=== PATIENT | male | born 1965 | race Caucasian/White ===

== ENCOUNTER 2020-06-17 09:19 | Inpatient (IN) | payer BC ==
[~2020-06-17] VITALS: Ht 182.9 cm; Wt 117.7 kg
[2020-06-17] VITALS (16 sets, daily range): BP systolic 98–136; BP diastolic 45–74
--- NOTE | 2020-06-17 06:40 | NUR ---
Patient in room MED 314. I have received report from Jennifer CLARKE and had the opportunity to ask questions and assume patient care. Addendum: 06/17/20 at 0845 by Natalie Humphreys RN Received report at [id number] not at 0640
[~2020-06-17 09:19] MED LIST: papaverine 30 mg/ml 2ml inj. ONE
[2020-06-17] MEDS ORDERED: LORazepam 0.5 MG tablet PO PRN (09:45)
[2020-06-17] MEDS ORDERED: diphenhydrAMINE 25mg capsule PO PRN (09:45)
[2020-06-17] MEDS ORDERED: normal saline 1,000 ML IV SCH (09:45)
[2020-06-17] MEDS ORDERED: DEXM5CPM PO (10:07)
[2020-06-17] MEDS ORDERED: ARIP5TAB14 PO (10:07)
[2020-06-17] MEDS ORDERED: LAMO25TA94 PO (10:07)
[2020-06-17] MEDS ORDERED: NALT50TA PO (10:07)
[2020-06-17] MEDS ORDERED: METO50TA16 PO (10:07)
[2020-06-17] MEDS ORDERED: GABA300C PO (10:07)
[2020-06-17] MEDS ORDERED: ZOLP5TAB2 PO (10:07)
[2020-06-17] MEDS ORDERED: PARO40TA PO (10:07)
[2020-06-17] MEDS ORDERED: ASPI-1265 PO (10:07)
[2020-06-17] MEDS ORDERED: LIDOcaine 1% (10mg/ml)w/preservative injection 20ml MDV ONE (10:35)
[2020-06-17] MEDS ORDERED: iohexol 350 MG/ML 50ML vial IV ONE (10:36)
[2020-06-17] MEDS ORDERED: iohexol 350MG/ML 100ml bottle IV ONE (10:36)
[2020-06-17] MEDS ORDERED: midazolam 2 mg/2 ml injection ONE ×3 (10:36→12:28)
[2020-06-17] MEDS: acetylcysteine 200 MG/ml 4ml vial PO SCH ×2 (10:36→21:04)
[2020-06-17] MEDS ORDERED: fentaNYL/PF 50MCG/1 ML 2ML syringe ONE (10:37)
[2020-06-17 10:40] LABS: BASOPHILS % (AUTO) 0.4 % (0-1); EOSINOPHILS # (AUTO) 0.2 X10'3 (0-0.9); EOSINOPHILS % (AUTO) 2.8 % (0-6); HEMATOCRIT 47.6 % (42.0-52.0); HEMOGLOBIN 16.6 g/dl (14.0-17.9); LYMPHOCYTES # (AUTO) 1.2 X10'3 (1.1-4.8); MEAN CORPUSCULAR HEMOGLOBIN 30.1 PG (27.0-31.0); MEAN CORPUSCULAR HGB CONC 34.8 g/dL (33.0-36.5); MEAN CORPUSCULAR VOLUME 86.4 FL (78-98); MEAN PLATELET VOLUME 8.1 FL (7.4-10.4); MONOCYTES # (AUTO) 0.5 X10'3 (0-0.9); NEUTROPHILS # (AUTO) 4.2 X10'3 (1.8-7.7); NEUTROPHILS % (AUTO) 69.8 % (42-75); PLATELET COUNT 211 X10'3 (140-440); RED BLOOD COUNT 5.51 X10'6 (4.70-6.10); RED CELL DISTRIBUTION WIDTH 14.2 % (11.5-14.5); WHITE BLOOD COUNT 6.1 X10'3 (4.5-11.0)
[2020-06-17 10:53] LABS: ALBUMIN 4.3 G/DL (3.4-5.0); ANION GAP 7 (8-16); BLOOD UREA NITROGEN 11 MG/DL (7-18); BUN/CREATININE RATIO 11.6 (5.4-32.0); CALCIUM 8.8 MG/DL (8.5-10.1); CHLORIDE 105 MMOL/L (99-107); CREATININE 0.95 MG/DL (0.60-1.10); GLUCOSE 90 MG/DL (70-104); POTASSIUM 4.4 MMOL/L (3.5-5.1); SODIUM 141 MMOL/L (135-145); TOTAL CARBON DIOXIDE 28.9 MMOL/L (24-32); eGFR 82 ML/MIN
[2020-06-17 10:57] LABS: PARTIAL THROMBOPLASTIN TIME 28 SECONDS (22-32)
[2020-06-17] MEDS ORDERED: iohexol 350 MG/1 ML 200ml bottle ONE (11:46)
[2020-06-17] MEDS ORDERED: heparin 1,000unit/ml 10ml vial 10 ML ONE (11:47)
[2020-06-17] MEDS ORDERED: nitroGLYCERIN-Tridil 50MG/D5W 250 ML IV ONE (11:59)
[2020-06-17] MEDS ORDERED: heparin 25,000 UNIT/250ml bag 250 ML IV ONE (12:52)
[2020-06-17] MEDS ORDERED: nitroGLYCERIN 1gm ointment UD TP ONE (13:25)
[2020-06-17] MEDS ORDERED: potassium Cl 20mEq/100mL bag 100 ML IV PRN (13:45)
[2020-06-17] MEDS ORDERED: magnesium 4gm in 100ml NS 100 ML IV PRN (13:45)
[2020-06-17] MEDS ORDERED: potassium Cl 20 mEq SR tablet PO PRN (13:45)
[2020-06-17] MEDS ORDERED: magnesium 2GM in 50ml NS 50 ML IV PRN (13:45)
[2020-06-17] MEDS ORDERED: MESSAGE TO NURSING PO ONE ×2 (13:45)
[2020-06-17] MEDS ORDERED: proCHLORperazine 10 MG/2 ml inj IV PRN (14:00)
[2020-06-17] MEDS ORDERED: OXAZEpam 15mg capsule PO PRN (14:00)
[2020-06-17] MEDS ORDERED: nitroGLYCERIN 0.4mg SUBLingual tab SL PRN (14:00)
[2020-06-17] MEDS ORDERED: ondansetron/PF 4mg/2ml inj IV PRN (14:00)
[2020-06-17] MEDS ORDERED: HYDROcodone/acetaminophen 5mg/325mg tablet PO PRN (14:00)
[2020-06-17] MEDS ORDERED: HYDROcodone/acetaminophen 10/325mg tab PO PRN (14:00)
--- NOTE | 2020-06-17 17:00 | NUR ---
Report had been received from Wilian CLARKE in short Stay. He brought pt to room 314. Pt A&O x 4 R Cath site soft, with CDI dressing with 1 tiny spot of blood which was circled, Pedal pulses present bilat. Assessment done and this nurse agrees with the first assessment done in Short stay. Pt denies pain. VSS. Having pt cont to lie flat for another hour. Pt no distress denies needs, Call light in reach.
[2020-06-17 17:51] LABS: HEMOGLOBIN A1C 5.4 % (4.5-6.2)
[2020-06-17 17:56] LABS: ALANINE AMINOTRANSFERASE 21 U/L (12-78); ALBUMIN 3.4 G/DL (3.4-5.0); ALBUMIN/GLOBULIN RATIO 1.3 (1.1-1.5); ALKALINE PHOSPHATASE 50 IU/L (46-116); ANION GAP 8 (8-16); ASPARTATE AMINO TRANSFERASE 15 U/L (10-37); BILIRUBIN,TOTAL 0.5 MG/DL (0.1-1.0); BLOOD UREA NITROGEN 12 MG/DL (7-18); BUN/CREATININE RATIO 13.5 (5.4-32.0); CALCIUM 8.5 MG/DL (8.5-10.1); CHLORIDE 106 MMOL/L (99-107); CREATININE 0.89 MG/DL (0.60-1.10); GLUCOSE 152 MG/DL (70-104); POTASSIUM 3.8 MMOL/L (3.5-5.1); SODIUM 143 MMOL/L (135-145); TOTAL CARBON DIOXIDE 29.1 MMOL/L (24-32); TOTAL PROTEIN 6.1 G/DL (6.4-8.2); eGFR 88 ML/MIN
[2020-06-17] MEDS: metoprolol tartrate 50mg tablet PO SCH (20:00)
[2020-06-17] MEDS: atorvastatin 10mg tablet PO SCH (21:04)
[2020-06-17] MEDS: normal saline 1000ml 1,000 ML IV SCH ×2 (21:09→23:00)
[2020-06-17] MEDS ORDERED: naltrexone 50mg tablet PO SCH (22:10)
[2020-06-17 22:35] LABS: BASOPHILS # (AUTO) 0.1 X10'3 (0-0.2); BASOPHILS % (AUTO) 1.1 % (0-1); EOSINOPHILS # (AUTO) 0.1 X10'3 (0-0.9); EOSINOPHILS % (AUTO) 2.1 % (0-6); HEMATOCRIT 41.9 % (42.0-52.0); HEMOGLOBIN 14.4 g/dl (14.0-17.9); LYMPHOCYTES # (AUTO) 1.7 X10'3 (1.1-4.8); LYMPHOCYTES % (AUTO) 25.4 % (21-51); MEAN CORPUSCULAR HEMOGLOBIN 29.9 PG (27.0-31.0); MEAN CORPUSCULAR HGB CONC 34.4 g/dL (33.0-36.5); MEAN CORPUSCULAR VOLUME 86.8 FL (78-98); MEAN PLATELET VOLUME 8.5 FL (7.4-10.4); MONOCYTES # (AUTO) 0.4 X10'3 (0-0.9); MONOCYTES % (AUTO) 6.4 % (2-12); NEUTROPHILS # (AUTO) 4.4 X10'3 (1.8-7.7); PLATELET COUNT 190 X10'3 (140-440); RED BLOOD COUNT 4.83 X10'6 (4.70-6.10); RED CELL DISTRIBUTION WIDTH 14.3 % (11.5-14.5); WHITE BLOOD COUNT 6.8 X10'3 (4.5-11.0)
[2020-06-17 22:46] LABS: ABG BASE EXCESS -0.2 mmol/L (-2.0-2.0); ABG HCO3 23.8 mmol/L (22.0-26.0); ABG OXYGEN SATURATION 95.4 % (94-97); ABG PCO2 (T) 36.9 mmHg (35.0-48.0); ABG PO2 (T) 77.2 mmHg (75.0-100.0); ALLEN'S TEST POSITIVE; FCOHb 0.4 % (0.0-3.9); PATIENT TEMPERATURE 36.9; TOTAL HEMOGLOBIN 14.4 G/dl (14.0-18.0)
[2020-06-17] MEDS: gabapentin 300mg capsule PO SCH (23:09)
[2020-06-18 02:00] VITALS: BP 103/56
[2020-06-18] MEDS: normal saline 1000ml 1,000 ML IV SCH ×2 (03:52→19:00)
[2020-06-18 06:00] VITALS: BP 109/68
--- NOTE | 2020-06-18 06:18 | NUR ---
Problems reprioritized. Patient report given, questions answered & plan of care reviewed with Jennifer CLARKE. Patient in stable condition
[2020-06-18] MEDS: acetylcysteine 200 MG/ml 4ml vial PO SCH ×2 (08:00→20:34)
[2020-06-18] MEDS: gabapentin 300mg capsule PO SCH (08:00)
[2020-06-18] MEDS ORDERED: DEXMETHYLPHENIDATE HCL PO SCH (08:00)
[2020-06-18] MEDS ORDERED: naltrexone 50mg tablet PO SCH (08:00)
[2020-06-18] MEDS ORDERED: aspirin 81mg tab.chew PO SCH (08:00)
--- NOTE | 2020-06-18 08:00 | NUR ---
The pt's had brought him things from home including his Dexmethlphenidate left it in . This am he was upset he had not gotten it but it was never given to NOC so they could take to pharmacy. Pt got up and had taken med himself. Nurse stated it needed to be kept in pharmacy so it would be safe and right dose.
[2020-06-18] MEDS ORDERED: insulin glargine (Lantus) pen - multi-dose SQ PRN (08:05)
[2020-06-18] MEDS ORDERED: dextrose 50%-water 50ml dispensing syringe IV PRN (08:05)
[2020-06-18] MEDS ORDERED: MESSAGE TO NURSING PO ONE ×2 (08:05→10:00)
[2020-06-18] MEDS: metoprolol tartrate 50mg tablet PO SCH ×2 (08:49→20:00)
[2020-06-18] MEDS: aripiprazole 5mg tablet PO SCH (08:50)
[2020-06-18] MEDS: PARoxetine 20mg tablet PO SCH (10:31)
[2020-06-18 11:00] VITALS: BP 109/68
[2020-06-18] MEDS ORDERED: ringers solution, lacted 1,000 ML IV ONE (11:00)
[2020-06-18] MEDS ORDERED: NALT50TA PO (12:11)
[2020-06-18] MEDS ORDERED: gabapentin 300mg capsule PO SCH (12:17)
[2020-06-18 13:39] LABS: BASOPHILS % (AUTO) 0.3 % (0-1); EOSINOPHILS # (AUTO) 0.1 X10'3 (0-0.9); EOSINOPHILS % (AUTO) 2.6 % (0-6); HEMATOCRIT 40.7 % (42.0-52.0); HEMOGLOBIN 14.3 g/dl (14.0-17.9); LYMPHOCYTES # (AUTO) 1.1 X10'3 (1.1-4.8); LYMPHOCYTES % (AUTO) 19.6 % (21-51); MEAN CORPUSCULAR VOLUME 85.7 FL (78-98); MEAN PLATELET VOLUME 7.8 FL (7.4-10.4); MONOCYTES # (AUTO) 0.5 X10'3 (0-0.9); MONOCYTES % (AUTO) 8.5 % (2-12); NEUTROPHILS # (AUTO) 3.8 X10'3 (1.8-7.7); PLATELET COUNT 173 X10'3 (140-440); RED BLOOD COUNT 4.75 X10'6 (4.70-6.10); RED CELL DISTRIBUTION WIDTH 14.2 % (11.5-14.5); WHITE BLOOD COUNT 5.5 X10'3 (4.5-11.0)
[2020-06-18] MEDS ORDERED: gabapentin 300mg capsule PO ONE (14:15)
[2020-06-18] MEDS: naltrexone 50mg tablet PO SCH ×2 (14:48→20:34)
[2020-06-18 18:00] VITALS: BP 125/81
--- NOTE | 2020-06-18 18:30 | NUR ---
Patient in room MED 314. I have received report from Jennifer CLARKE and had the opportunity to ask questions and assume patient care.
--- NOTE | 2020-06-18 18:40 | NUR ---
asked Noc shift to do daily weight.
[2020-06-18] MEDS ORDERED: sod chloride 0.9% 10ml flush syringe IV SCH (20:00)
--- NOTE | 2020-06-18 20:26 | NUR ---
At 2019 spoke to Alexandr galvan patient home meds. ok for patient to take lamictal 50 mg at bedtime. no other orders at this time
[2020-06-18] MEDS: atorvastatin 10mg tablet PO SCH (20:34)
[2020-06-18] MEDS: lamoTRIgine 25mg tablet PO SCH (21:12)
[2020-06-18 22:00] VITALS: BP 115/64
[2020-06-19] VITALS (14 sets, daily range): BP systolic 89–125; BP diastolic 43–72
[2020-06-19] MEDS ORDERED: MESSAGE TO NURSING PO ONE ×2 (02:00→06:00)
--- NOTE | 2020-06-19 03:26 | NUR ---
patient is in stable condition. prep for cabg is starting now
[2020-06-19] MEDS ORDERED: MALTODEXTRIN/FRUCTOSE 0.68 KCAL/ML LIQUID 296ML BOTTLE PO ONE (05:00)
[2020-06-19] MEDS ORDERED: ceFAZolin 1000mg inj ONE (05:02)
[2020-06-19] MEDS ORDERED: Insulin Reg/NS 100units/100mL 100 ML IV SCH ×2 (05:30→10:35)
[2020-06-19] MEDS ORDERED: gabapentin 400mg capsule PO ONE (05:30)
[2020-06-19] MEDS ORDERED: mupirocin 2% ointment 22GM NS SCH (05:30)
[2020-06-19] MEDS ORDERED: ceFAZolin inj. 3,000 MG in normal saline 100ml IV soln 100 ML IV ONE (05:30)
[2020-06-19] MEDS ORDERED: LORazepam 2 mg/ml vial IV ONE (06:00)
[2020-06-19] MEDS ORDERED: famotidine 20mg tablet PO ONE (06:00)
--- NOTE | 2020-06-19 06:20 | NUR ---
Problems reprioritized. Patient report given, questions answered & plan of care reviewed with Jennifer CLARKE.
[2020-06-19] MEDS ORDERED: papaverine 30 mg/ml 2ml inj. IA ONE (06:30)
--- NOTE | 2020-06-19 06:30 | NUR ---
Patient in room MED 314. I have received report from Natalie CLARKE and had the opportunity to ask questions and assume patient care.
[2020-06-19] MEDS ORDERED: LORazepam 2 mg/ml vial ONE (06:35)
[2020-06-19 06:36] LABS: ALBUMIN 3.7 G/DL (3.4-5.0); ANION GAP 9 (8-16); BLOOD UREA NITROGEN 9 MG/DL (7-18); BUN/CREATININE RATIO 10.5 (5.4-32.0); CALCIUM 8.6 MG/DL (8.5-10.1); CHLORIDE 106 MMOL/L (99-107); CREATININE 0.86 MG/DL (0.60-1.10); GLUCOSE 105 MG/DL (70-104); POTASSIUM 3.9 MMOL/L (3.5-5.1); SODIUM 142 MMOL/L (135-145); eGFR > 90 ML/MIN
--- NOTE | 2020-06-19 06:50 | NUR ---
Pt taken to OR for CABG. All pre op meds completed. Pt has remained stable and stating to Dr Link "I am ready to do this " he had remained stable and is in good spirits this morning. Taken in bed by OR nurses.
[2020-06-19] MEDS ORDERED: rocuronium 10mg/ml inj IV ONE ×3 (06:55→08:12)
[2020-06-19] MEDS ORDERED: NITROPRUSSIDE IV ONE (06:55)
[2020-06-19] MEDS ORDERED: nitroGLYCERIN in D5W 50mg/250ml (Tridil) infusion IV ONE (06:55)
[2020-06-19] MEDS ORDERED: isoflurane 100ml inhalation liquid IH ONE (06:55)
[2020-06-19] MEDS ORDERED: protamine sulf. 10mg/ml inj. IV ONE (06:55)
[2020-06-19] MEDS ORDERED: SUFENTANIL CITRATE 50 MCG/ML 2ml ampule IV ONE (07:00)
[2020-06-19] MEDS ORDERED: LIDOcaine 2% (20mg/ml) 5ml vial ONE (07:02)
[2020-06-19] MEDS ORDERED: propofol inj 20 ML IV ONE (07:02)
[2020-06-19 07:46] LABS: ABG BASE EXCESS 1.9 mmol/L (-2.0-2.0); ABG HCO3 25.3 mmol/L (22.0-26.0); ABG OXYGEN SATURATION 97.7 % (94-97); ABG PCO2 35.5 mmHg (35.0-48.0); CL (ABG) 104 mmol/L (98-110); FCOHb 1.1 % (0.0-3.9); FMetHb 0.3 % (0.0-1.5); FO2Hb 96.3 % (94-97); GLUCOSE (ABG) 102 mg/dl (70-140); IONIZED CA (ABG) 1.12 mmol/L (1.10-1.43); K (ABG) 3.9 mmol/L (3.5-5.0); TOTAL HEMOGLOBIN 13.6 G/dl (14.0-18.0)
[2020-06-19] MEDS ORDERED: heparin 10,000 units/1 ML INJ ONE (08:00)
[2020-06-19] MEDS ORDERED: phenylephrine 10mg/ml inj. ONE ×2 (08:00→08:12)
[2020-06-19] MEDS ORDERED: calcium chloride 100 MG/1 ML inj IV ONE (08:00)
[2020-06-19] MEDS ORDERED: sodium bicarbonate (8.4%) 1 mEq/ml syringe ONE (08:00)
[2020-06-19] MEDS: aripiprazole 5mg tablet PO SCH (08:00)
[2020-06-19] MEDS: naltrexone 50mg tablet PO SCH ×2 (08:00→20:38)
[2020-06-19] MEDS ORDERED: aminocaproic acid 250 MG/1 ML inj. ONE (08:00)
[2020-06-19] MEDS ORDERED: LIDOcaine 2% (20 mg/ml) 5ml cardiac syringe ONE (08:00)
[2020-06-19] MEDS ORDERED: metoprolol tartrate 12.5mg (1/2 tablet) PO SCH (08:00)
[2020-06-19] MEDS ORDERED: methylPREDNISolone sod succ 1000mg vial ONE (08:00)
[2020-06-19] MEDS ORDERED: magnesium sulf 1 GM/2 ML ONE (08:00)
[2020-06-19] MEDS: acetylcysteine 200 MG/ml 4ml vial PO SCH ×2 (08:00→20:38)
[2020-06-19] MEDS: PARoxetine 20mg tablet PO SCH (08:00)
[2020-06-19] MEDS ORDERED: albumin (human) 25% 100 ML IV solution IV ONE (08:00)
[2020-06-19] MEDS ORDERED: potassium Cl 2 mEq/ml inj IV ONE (08:00)
[2020-06-19] MEDS: nitroPRUSSIDE (NIPRIDE) (200MCG/ML) 100ML Drip IV SCH ×2 (08:05→19:19)
[2020-06-19 08:37] LABS: ABG BASE EXCESS 0.5 mmol/L (-2.0-2.0); ABG HCO3 24.2 mmol/L (22.0-26.0); ABG OXYGEN SATURATION 96.9 % (94-97); ABG PCO2 36.2 mmHg (35.0-48.0); ABG PO2 85.2 mmHg (75.0-100.0); CL (ABG) 104 mmol/L (98-110); FO2Hb 95.9 % (94-97); GLUCOSE (ABG) 107 mg/dl (70-140); IONIZED CA (ABG) 1.09 mmol/L (1.10-1.43); K (ABG) 3.9 mmol/L (3.5-5.0); TOTAL HEMOGLOBIN 14.1 G/dl (14.0-18.0)
[2020-06-19 09:15] LABS: ABG BASE EXCESS VENOUS -1.2 mmol/L; ABG HCO3 VENOUS 24.8 mmol/L; ABG PCO2 VENOUS 47.1 mmHg; ABG PO2 VENOUS 49.7 mmHg; CL (ABG) 101 mmol/L (98-110); FCOHb VENOUS 1.1 %; FHHb VENOUS 15.4 %; FMetHb VENOUS 0.2 %; FO2Hb VENOUS 83.3 %; GLUCOSE (ABG) 122 mg/dl (70-140); IONIZED CA (ABG) 0.99 mmol/L (1.10-1.43); K (ABG) 4.4 mmol/L (3.5-5.0); TOTAL HEMOGLOBIN 11.2 G/dl (14.0-18.0)
[2020-06-19 09:19] LABS: ABG BASE EXCESS -3.7 mmol/L (-2.0-2.0); ABG HCO3 21.5 mmol/L (22.0-26.0); ABG OXYGEN SATURATION 99.2 % (94-97); ABG PCO2 39.8 mmHg (35.0-48.0); ABG PO2 357.5 mmHg (75.0-100.0); CL (ABG) 102 mmol/L (98-110); FCOHb 0.3 % (0.0-3.9); FMetHb 0.1 % (0.0-1.5); FO2Hb 98.8 % (94-97); GLUCOSE (ABG) 119 mg/dl (70-140); IONIZED CA (ABG) 1.04 mmol/L (1.10-1.43); K (ABG) 4.2 mmol/L (3.5-5.0); TOTAL HEMOGLOBIN 11.6 G/dl (14.0-18.0)
[2020-06-19 09:41] LABS: ABG BASE EXCESS 0.2 mmol/L (-2.0-2.0); ABG HCO3 26.2 mmol/L (22.0-26.0); ABG OXYGEN SATURATION 99.3 % (94-97); ABG PCO2 48.4 mmHg (35.0-48.0); ABG PO2 249.7 mmHg (75.0-100.0); CL (ABG) 102 mmol/L (98-110); FCOHb 0.2 % (0.0-3.9); FMetHb 0.3 % (0.0-1.5); FO2Hb 98.8 % (94-97); GLUCOSE (ABG) 122 mg/dl (70-140); IONIZED CA (ABG) 1.36 mmol/L (1.10-1.43); K (ABG) 4.8 mmol/L (3.5-5.0); TOTAL HEMOGLOBIN 11.1 G/dl (14.0-18.0)
[2020-06-19 10:10] LABS: ABG BASE EXCESS -0.2 mmol/L (-2.0-2.0); ABG HCO3 23.7 mmol/L (22.0-26.0); ABG OXYGEN SATURATION 97.7 % (94-97); ABG PCO2 36.2 mmHg (35.0-48.0); ABG PO2 104.2 mmHg (75.0-100.0); CL (ABG) 104 mmol/L (98-110); FCOHb 0.1 % (0.0-3.9); FMetHb 0.3 % (0.0-1.5); FO2Hb 97.3 % (94-97); GLUCOSE (ABG) 119 mg/dl (70-140); IONIZED CA (ABG) 1.17 mmol/L (1.10-1.43); K (ABG) 4.2 mmol/L (3.5-5.0); TOTAL HEMOGLOBIN 12.5 G/dl (14.0-18.0)
[2020-06-19 10:13] LABS: ACTIVATED CLOTTING TIME 120 SEC (101-148)
[2020-06-19] MEDS ORDERED: mineral oil 133ml enema RC PRN (10:35)
[2020-06-19] MEDS ORDERED: niCARDipine-NS 40mg/200ml IVPB 200 ML IV PRN (10:35)
[2020-06-19] MEDS ORDERED: potassium Cl 20 mEq SR tablet PO PRN (10:35)
[2020-06-19] MEDS ORDERED: pantoprazole 40 MG vial IV ONE (10:35)
[2020-06-19] MEDS ORDERED: magnesium citrate 296ml oral solution PO PRN (10:35)
[2020-06-19] MEDS ORDERED: normal saline 250ml IV soln 250 ML IV PRN (10:35)
[2020-06-19] MEDS ORDERED: Neutra Phos packet PO PRN (10:35)
[2020-06-19] MEDS ORDERED: bisacodyl 10mg suppository rectal RC PRN (10:35)
[2020-06-19] MEDS ORDERED: dextrose 50%-water 50ml dispensing syringe IV PRN (10:35)
[2020-06-19] MEDS ORDERED: sodium phosphate inj. 30 MMOL in dextrose 5%-water 250 ML IV PRN (10:35)
[2020-06-19] MEDS ORDERED: insulin glargine (Lantus) pen - multi-dose SQ PRN (10:35)
[2020-06-19] MEDS ORDERED: magnesium 4gm in 100ml NS 100 ML IV PRN (10:35)
[2020-06-19] MEDS ORDERED: nitroGLYCERIN-Tridil 50MG/D5W 250 ML IV PRN (10:35)
[2020-06-19] MEDS ORDERED: magnesium hydroxide 30ml (MOM) UD suspension PO PRN (10:35)
[2020-06-19] MEDS ORDERED: DOPamine 400mg/D5W 250ml 250 ML IV PRN (10:35)
[2020-06-19] MEDS ORDERED: acetaminophen 325mg tablet PO PRN ×2 (10:35)
[2020-06-19] MEDS ORDERED: ondansetron/PF 4mg/2ml inj IV PRN (10:35)
[2020-06-19] MEDS ORDERED: sodium chloride 0.45% 1,000 ML IV SCH (10:35)
[2020-06-19] MEDS ORDERED: sodium phosphate inj. 15 MMOL in dextrose 5%-water 250 ML IV PRN (10:35)
[2020-06-19] MEDS ORDERED: morphine 4 MG/ML inj SYRINge IV PRN (10:35)
[2020-06-19] MEDS: DEXMETHYLPHENIDATE 5 MG PO SCH (10:56)
[2020-06-19] MEDS: ipratropium/albuterol 3ml nebule IH SCH ×2 (11:00→16:29)
--- NOTE | 2020-06-19 11:00 | NUR ---
Received to room [], accompanied by MDs [] and surgical crew. Placed on ventilator, to playground monitor, arterial line and PA line pressure monitored. Chest tubes to suction at 20 cm. Cohen cath to gravity drainage. Dressings are dry and intact. See assessment record. All vasoactive drugs are infusing via central line.
[2020-06-19] MEDS ORDERED: dexmedetomidine/D5W 100mL 100 ML IV PRN (11:05)
[2020-06-19 11:07] LABS: ABG BASE EXCESS -0.4 mmol/L (-2.0-2.0); ABG HCO3 23.1 mmol/L (22.0-26.0); ABG OXYGEN SATURATION 96.4 % (94-97); ABG PCO2 (T) 34.3 mmHg (35.0-48.0); ABG PO2 (T) 85.7 mmHg (75.0-100.0); FCOHb 0.3 % (0.0-3.9); FMetHb 0.4 % (0.0-1.5); FO2Hb 95.7 % (94-97); PATIENT TEMPERATURE 36.7; PEEP 5 cm H2O; RESPIRATORY RATE 14 b/min; TIDAL VOLUME 700 mL; TOTAL HEMOGLOBIN 14.8 G/dl (14.0-18.0)
--- NOTE | 2020-06-19 11:20 | NUR ---
pt with eyes slightly open, resless- restraints placed, precedex ordered and hung. pt calmer, opens eyes with care
[2020-06-19 11:31] LABS: BASOPHILS % (AUTO) 0.1 % (0-1); EOSINOPHILS # (AUTO) 0.1 X10'3 (0-0.9); EOSINOPHILS % (AUTO) 0.9 % (0-6); HEMATOCRIT 41.9 % (42.0-52.0); HEMOGLOBIN 14.4 g/dl (14.0-17.9); LYMPHOCYTES # (AUTO) 1.1 X10'3 (1.1-4.8); LYMPHOCYTES % (AUTO) 6.8 % (21-51); MEAN CORPUSCULAR HEMOGLOBIN 29.5 PG (27.0-31.0); MEAN CORPUSCULAR HGB CONC 34.4 g/dL (33.0-36.5); MEAN CORPUSCULAR VOLUME 85.9 FL (78-98); MEAN PLATELET VOLUME 7.8 FL (7.4-10.4); MONOCYTES # (AUTO) 0.7 X10'3 (0-0.9); MONOCYTES % (AUTO) 4.3 % (2-12); NEUTROPHILS # (AUTO) 14.5 X10'3 (1.8-7.7); NEUTROPHILS % (AUTO) 87.9 % (42-75); PLATELET COUNT 207 X10'3 (140-440); RED BLOOD COUNT 4.88 X10'6 (4.70-6.10); RED CELL DISTRIBUTION WIDTH 14.1 % (11.5-14.5); WHITE BLOOD COUNT 16.6 X10'3 (4.5-11.0)
[2020-06-19 11:38] LABS: ALANINE AMINOTRANSFERASE 21 U/L (12-78); ALBUMIN 3.6 G/DL (3.4-5.0); ALBUMIN/GLOBULIN RATIO 1.6 (1.1-1.5); ALKALINE PHOSPHATASE 45 IU/L (46-116); ANION GAP 9 (8-16); ASPARTATE AMINO TRANSFERASE 24 U/L (10-37); BILIRUBIN,TOTAL 0.9 MG/DL (0.1-1.0); BLOOD UREA NITROGEN 9 MG/DL (7-18); CALCIUM 8.3 MG/DL (8.5-10.1); CHLORIDE 108 MMOL/L (99-107); CREATININE 0.82 MG/DL (0.60-1.10); GLUCOSE 140 MG/DL (70-104); MAGNESIUM 2.4 MG/DL (1.5-2.4); PHOSPHORUS 2.5 MG/DL (2.3-4.5); POTASSIUM 3.8 MMOL/L (3.5-5.1); SODIUM 143 MMOL/L (135-145); TOTAL PROTEIN 5.9 G/DL (6.4-8.2); eGFR > 90 ML/MIN
[2020-06-19 12:00] LABS: PARTIAL THROMBOPLASTIN TIME 24 SECONDS (22-32)
--- NOTE | 2020-06-19 12:09 | NUR ---
CABG consult, will need written post cardiac surgery diet education handout and written heart healthy education handout with verbal review prior to discharge. Addendum: 06/19/20 at [address] Amended: Links added.
[2020-06-19] MEDS: gabapentin 300mg capsule PO SCH ×2 (13:00→20:37)
[2020-06-19] MEDS: magnesium 2GM in 50ml NS 50 ML IV PRN (13:01)
[2020-06-19] MEDS: potassium Cl 20mEq/100mL bag 100 ML IV PRN ×4 (13:01→19:46)
--- NOTE | 2020-06-19 14:28 | NUR ---
replacing k and mag per protocol. decreasing fio2- tolerating well
[2020-06-19] MEDS: ceFAZolin/D5W- 1GM premix 50 ML IV SCH (16:12)
--- NOTE | 2020-06-19 16:30 | NUR ---
extubated to 4lnc. dr de leon aware of abgs. sbp down with hob up albumin given, checked with nibp.
[2020-06-19 16:39] LABS: ABG BASE EXCESS -2.7 mmol/L (-2.0-2.0); ABG HCO3 20.4 mmol/L (22.0-26.0); ABG OXYGEN SATURATION 91.9 % (94-97); ABG PCO2 (T) 32.2 mmHg (35.0-48.0); ABG PO2 (T) 65.1 mmHg (75.0-100.0); FCOHb 0.1 % (0.0-3.9); FMetHb 0.2 % (0.0-1.5); FO2Hb 91.6 % (94-97); PEEP 5 cm H2O; TOTAL HEMOGLOBIN 14.7 G/dl (14.0-18.0)
[2020-06-19] MEDS: albumin (Human) 5% 250ml 250 ML IV PRN ×3 (16:59→23:41)
[2020-06-19 17:14] LABS: BASOPHILS % (AUTO) 0.1 % (0-1); EOSINOPHILS % (AUTO) 0.1 % (0-6); HEMOGLOBIN 14.5 g/dl (14.0-17.9); LYMPHOCYTES # (AUTO) 0.3 X10'3 (1.1-4.8); LYMPHOCYTES % (AUTO) 2.4 % (21-51); MEAN CORPUSCULAR HEMOGLOBIN 29.8 PG (27.0-31.0); MEAN CORPUSCULAR HGB CONC 34.5 g/dL (33.0-36.5); MEAN CORPUSCULAR VOLUME 86.3 FL (78-98); MEAN PLATELET VOLUME 8.7 FL (7.4-10.4); MONOCYTES # (AUTO) 0.1 X10'3 (0-0.9); MONOCYTES % (AUTO) 1.2 % (2-12); NEUTROPHILS # (AUTO) 10.3 X10'3 (1.8-7.7); NEUTROPHILS % (AUTO) 96.2 % (42-75); PLATELET COUNT 155 X10'3 (140-440); RED BLOOD COUNT 4.87 X10'6 (4.70-6.10); WHITE BLOOD COUNT 10.7 X10'3 (4.5-11.0)
[2020-06-19] MEDS: morphine 4 MG/ML inj SYRINge IV PRN (17:23)
[2020-06-19 17:31] LABS: ALBUMIN 3.6 G/DL (3.4-5.0); ANION GAP 9 (8-16); BLOOD UREA NITROGEN 10 MG/DL (7-18); BUN/CREATININE RATIO 12.5 (5.4-32.0); CALCIUM 8.4 MG/DL (8.5-10.1); CHLORIDE 107 MMOL/L (99-107); GLUCOSE 151 MG/DL (70-104); MAGNESIUM 3.3 MG/DL (1.5-2.4); PHOSPHORUS 2.7 MG/DL (2.3-4.5); POTASSIUM 4.2 MMOL/L (3.5-5.1); SODIUM 141 MMOL/L (135-145); TOTAL CARBON DIOXIDE 25.3 MMOL/L (24-32); eGFR > 90 ML/MIN
[2020-06-19] MEDS: vancomycin/NS 1 GM ADD-VANTAGE 250 ML IV SCH (20:36)
[2020-06-19] MEDS: sennosides/docusate sodium tablet PO SCH (20:38)
[2020-06-19] MEDS: atorvastatin 10mg tablet PO SCH (20:38)
[2020-06-19] MEDS: lamoTRIgine 25mg tablet PO SCH (20:38)
[2020-06-19] MEDS: mupirocin 2% nasal ointment 1gm UD NS SCH (20:44)
[2020-06-19] MEDS: HYDROcodone/acetaminophen 10/325mg tab PO PRN (23:42)
[2020-06-20] VITALS (24 sets, daily range): BP systolic 96–152; BP diastolic 46–88
[2020-06-20] MEDS: ceFAZolin/D5W- 1GM premix 50 ML IV SCH ×4 (00:19→23:31)
[2020-06-20] MEDS: nitroPRUSSIDE (NIPRIDE) (200MCG/ML) 100ML Drip IV SCH (00:47)
[2020-06-20 03:46] LABS: BASOPHILS % (AUTO) 0 % (0-1); EOSINOPHILS % (AUTO) 0 % (0-6); HEMATOCRIT 34.7 % (42.0-52.0); LYMPHOCYTES # (AUTO) 0.4 X10'3 (1.1-4.8); MEAN CORPUSCULAR HEMOGLOBIN 29.9 PG (27.0-31.0); MEAN CORPUSCULAR HGB CONC 34.6 g/dL (33.0-36.5); MEAN CORPUSCULAR VOLUME 86.4 FL (78-98); MEAN PLATELET VOLUME 8.2 FL (7.4-10.4); MONOCYTES # (AUTO) 0.6 X10'3 (0-0.9); MONOCYTES % (AUTO) 4.5 % (2-12); NEUTROPHILS # (AUTO) 11.3 X10'3 (1.8-7.7); NEUTROPHILS % (AUTO) 92.5 % (42-75); PARTIAL THROMBOPLASTIN TIME 27 SECONDS (22-32); PLATELET COUNT 136 X10'3 (140-440); RED BLOOD COUNT 4.01 X10'6 (4.70-6.10); RED CELL DISTRIBUTION WIDTH 14.1 % (11.5-14.5); WHITE BLOOD COUNT 12.2 X10'3 (4.5-11.0)
[2020-06-20 03:54] LABS: ALANINE AMINOTRANSFERASE 18 U/L (12-78); ALBUMIN 3.6 G/DL (3.4-5.0); ALBUMIN/GLOBULIN RATIO 1.6 (1.1-1.5); ALKALINE PHOSPHATASE 39 IU/L (46-116); ANION GAP 10 (8-16); ASPARTATE AMINO TRANSFERASE 23 U/L (10-37); BILIRUBIN,TOTAL 0.7 MG/DL (0.1-1.0); BLOOD UREA NITROGEN 13 MG/DL (7-18); BUN/CREATININE RATIO 15.9 (5.4-32.0); CALCIUM 7.9 MG/DL (8.5-10.1); CHLORIDE 108 MMOL/L (99-107); CREATININE 0.82 MG/DL (0.60-1.10); GLUCOSE 131 MG/DL (70-104); MAGNESIUM 2.4 MG/DL (1.5-2.4); PHOSPHORUS 3.7 MG/DL (2.3-4.5); POTASSIUM 4.1 MMOL/L (3.5-5.1); SODIUM 141 MMOL/L (135-145); TOTAL CARBON DIOXIDE 23.4 MMOL/L (24-32); TOTAL PROTEIN 5.8 G/DL (6.4-8.2); eGFR > 90 ML/MIN
[2020-06-20] MEDS: HYDROcodone/acetaminophen 10/325mg tab PO PRN ×5 (03:55→23:30)
[2020-06-20] MEDS: magnesium 2GM in 50ml NS 50 ML IV PRN (05:55)
--- NOTE | 2020-06-20 06:21 | NUR ---
Problems reprioritized. Patient report given, questions answered & plan of care reviewed with TRICIA andrade.
[2020-06-20] MEDS: morphine 4 MG/ML inj SYRINge IV PRN (06:57)
[2020-06-20] MEDS: metoprolol tartrate 12.5mg (1/2 tablet) PO SCH ×2 (07:41→20:30)
[2020-06-20] MEDS: pantoprazole 40mg Tablet.DR PO SCH (07:41)
[2020-06-20] MEDS: naltrexone 50mg tablet PO SCH ×2 (07:41→20:33)
[2020-06-20] MEDS: aspirin 325mg tablet, delayed-release (Ecotrin) PO SCH (07:41)
[2020-06-20] MEDS: aripiprazole 5mg tablet PO SCH (07:42)
[2020-06-20] MEDS: gabapentin 300mg capsule PO SCH ×3 (07:42→20:30)
[2020-06-20] MEDS: acetylcysteine 200 MG/ml 4ml vial PO SCH (07:42)
[2020-06-20] MEDS: mupirocin 2% nasal ointment 1gm UD NS SCH ×2 (07:43→20:34)
[2020-06-20] MEDS: vancomycin/NS 1 GM ADD-VANTAGE 250 ML IV SCH ×2 (07:43→20:34)
[2020-06-20] MEDS: sennosides/docusate sodium tablet PO SCH ×2 (07:55→20:30)
[2020-06-20] MEDS: PARoxetine 20mg tablet PO SCH (07:55)
[2020-06-20] MEDS: DEXMETHYLPHENIDATE 5 MG PO SCH (08:14)
--- NOTE | 2020-06-20 13:50 | NUR ---
oxygen reduced to 4 liters nc
--- NOTE | 2020-06-20 15:53 | NUR ---
pt assisted back to bed with minimal assist of two. oxygen reduced to 2 liters nc
[2020-06-20] MEDS: atorvastatin 10mg tablet PO SCH (20:31)
[2020-06-20] MEDS: lamoTRIgine 25mg tablet PO SCH (20:33)
[2020-06-21] VITALS (14 sets, daily range): BP systolic 99–144; BP diastolic 56–81
[2020-06-21] MEDS: morphine 4 MG/ML inj SYRINge IV PRN (00:15)
[2020-06-21 02:50] LABS: BASOPHILS % (AUTO) 0.1 % (0-1); EOSINOPHILS % (AUTO) 0.1 % (0-6); HEMATOCRIT 34.6 % (42.0-52.0); LYMPHOCYTES # (AUTO) 0.8 X10'3 (1.1-4.8); LYMPHOCYTES % (AUTO) 6.7 % (21-51); MEAN CORPUSCULAR HEMOGLOBIN 30.1 PG (27.0-31.0); MEAN CORPUSCULAR HGB CONC 34.8 g/dL (33.0-36.5); MEAN CORPUSCULAR VOLUME 86.5 FL (78-98); MEAN PLATELET VOLUME 8.3 FL (7.4-10.4); MONOCYTES # (AUTO) 0.9 X10'3 (0-0.9); MONOCYTES % (AUTO) 7.6 % (2-12); NEUTROPHILS # (AUTO) 9.7 X10'3 (1.8-7.7); NEUTROPHILS % (AUTO) 85.5 % (42-75); PLATELET COUNT 120 X10'3 (140-440); RED CELL DISTRIBUTION WIDTH 14.1 % (11.5-14.5); WHITE BLOOD COUNT 11.4 X10'3 (4.5-11.0)
[2020-06-21 03:04] LABS: ALBUMIN 3.4 G/DL (3.4-5.0); ANION GAP 8 (8-16); BLOOD UREA NITROGEN 14 MG/DL (7-18); BUN/CREATININE RATIO 16.7 (5.4-32.0); CALCIUM 8.2 MG/DL (8.5-10.1); CHLORIDE 107 MMOL/L (99-107); CREATININE 0.84 MG/DL (0.60-1.10); GLUCOSE 114 MG/DL (70-104); MAGNESIUM 2.2 MG/DL (1.5-2.4); PHOSPHORUS 2.9 MG/DL (2.3-4.5); POTASSIUM 4.3 MMOL/L (3.5-5.1); SODIUM 142 MMOL/L (135-145); eGFR > 90 ML/MIN
[2020-06-21] MEDS: HYDROcodone/acetaminophen 10/325mg tab PO PRN ×5 (03:44→22:18)
[2020-06-21] MEDS ORDERED: potassium Cl 20mEq/100mL bag 100 ML IV PRN (06:50)
[2020-06-21] MEDS ORDERED: potassium Cl 20 mEq SR tablet PO PRN (06:50)
[2020-06-21] MEDS ORDERED: magnesium 4gm in 100ml NS 100 ML IV PRN (06:50)
[2020-06-21] MEDS ORDERED: magnesium 2GM in 50ml NS 50 ML IV PRN (06:50)
--- NOTE | 2020-06-21 07:00 | NUR ---
Chest tubes removed By PA
[2020-06-21] MEDS: metoprolol tartrate 25mg tablet PO SCH ×2 (07:46→19:43)
[2020-06-21] MEDS: PARoxetine 20mg tablet PO SCH (07:47)
[2020-06-21] MEDS: sennosides/docusate sodium tablet PO SCH ×2 (07:47→19:44)
[2020-06-21] MEDS: aripiprazole 5mg tablet PO SCH (07:48)
[2020-06-21] MEDS: aspirin 325mg tablet, delayed-release (Ecotrin) PO SCH (07:48)
[2020-06-21] MEDS: gabapentin 300mg capsule PO SCH ×2 (07:48→16:25)
[2020-06-21] MEDS: mupirocin 2% nasal ointment 1gm UD NS SCH (07:48)
[2020-06-21] MEDS: pantoprazole 40mg Tablet.DR PO SCH (07:48)
[2020-06-21] MEDS: potassium Cl 20 mEq SR tablet PO SCH ×2 (07:50→19:44)
[2020-06-21] MEDS: magnesium Cl slow-release 64mg tablet PO SCH ×2 (07:50→19:44)
[2020-06-21] MEDS: naltrexone 50mg tablet PO SCH ×2 (07:52→19:44)
[2020-06-21] MEDS: DEXMETHYLPHENIDATE 5 MG PO SCH (08:03)
--- NOTE | 2020-06-21 08:41 | NUR ---
FC and CL removed per orders. Pt tolerated well
--- NOTE | 2020-06-21 09:00 | NUR ---
Report called. Belongings gathered; CPAP, phone/hot car charger, glasses, clothes, green bag and blue bag.
--- NOTE | 2020-06-21 09:30 | NUR ---
Pt transferred to 311 with all belongings in stable condition
--- NOTE | 2020-06-21 17:54 | NUR ---
Sitting up eating dinner, patient uses IS and flutter valve q 1h.
--- NOTE | 2020-06-21 18:09 | NUR ---
Problems reprioritized. Patient report given, questions answered & plan of care reviewed with Jim CLARKE.
--- NOTE | 2020-06-21 18:30 | NUR ---
Patient in room MED 311. I have received report from Carolyn-TRICIA, and had the opportunity to ask questions and assume patient care.
[2020-06-21] MEDS: lamoTRIgine 25mg tablet PO SCH (19:44)
[2020-06-21] MEDS: atorvastatin 10mg tablet PO SCH (19:44)
[2020-06-22] VITALS: BP 126/76
[2020-06-22] MEDS: gabapentin 300mg capsule PO SCH ×3 (00:11→15:41)
[2020-06-22 03:00] VITALS: BP 127/77
[2020-06-22] MEDS: HYDROcodone/acetaminophen 10/325mg tab PO PRN ×2 (05:18→20:35)
[2020-06-22 06:00] VITALS: BP 135/81
--- NOTE | 2020-06-22 06:00 | NUR ---
Patient in room MED 311. I have received report from oren kendrick and had the opportunity to ask questions and assume patient care.
--- NOTE | 2020-06-22 06:17 | NUR ---
Problems reprioritized. Patient report given, questions answered & plan of care reviewed with José Antonio.
[2020-06-22 06:35] LABS: BASOPHILS % (AUTO) 0.2 % (0-1); EOSINOPHILS # (AUTO) 0.2 X10'3 (0-0.9); EOSINOPHILS % (AUTO) 1.8 % (0-6); HEMATOCRIT 38.2 % (42.0-52.0); HEMOGLOBIN 13.3 g/dl (14.0-17.9); LYMPHOCYTES # (AUTO) 0.9 X10'3 (1.1-4.8); LYMPHOCYTES % (AUTO) 11.1 % (21-51); MEAN CORPUSCULAR HEMOGLOBIN 30.4 PG (27.0-31.0); MEAN CORPUSCULAR HGB CONC 34.8 g/dL (33.0-36.5); MEAN CORPUSCULAR VOLUME 87.2 FL (78-98); MEAN PLATELET VOLUME 8.4 FL (7.4-10.4); MONOCYTES # (AUTO) 0.8 X10'3 (0-0.9); MONOCYTES % (AUTO) 9.4 % (2-12); NEUTROPHILS # (AUTO) 6.6 X10'3 (1.8-7.7); NEUTROPHILS % (AUTO) 77.5 % (42-75); PLATELET COUNT 140 X10'3 (140-440); RED BLOOD COUNT 4.38 X10'6 (4.70-6.10); RED CELL DISTRIBUTION WIDTH 14.2 % (11.5-14.5); WHITE BLOOD COUNT 8.5 X10'3 (4.5-11.0)
[2020-06-22 06:57] LABS: ALBUMIN 3.4 G/DL (3.4-5.0); ANION GAP 9 (8-16); BLOOD UREA NITROGEN 11 MG/DL (7-18); BUN/CREATININE RATIO 13.6 (5.4-32.0); CALCIUM 8.5 MG/DL (8.5-10.1); CHLORIDE 105 MMOL/L (99-107); CREATININE 0.81 MG/DL (0.60-1.10); GLUCOSE 103 MG/DL (70-104); POTASSIUM 4.3 MMOL/L (3.5-5.1); SODIUM 142 MMOL/L (135-145); TOTAL CARBON DIOXIDE 27.9 MMOL/L (24-32); eGFR > 90 ML/MIN
[2020-06-22] MEDS: PARoxetine 20mg tablet PO SCH (07:50)
[2020-06-22] MEDS: aspirin 325mg tablet, delayed-release (Ecotrin) PO SCH (07:50)
[2020-06-22] MEDS: metoprolol tartrate 25mg tablet PO SCH ×2 (07:50→20:34)
[2020-06-22] MEDS: pantoprazole 40mg Tablet.DR PO SCH (07:51)
[2020-06-22] MEDS: naltrexone 50mg tablet PO SCH ×2 (07:51→20:36)
[2020-06-22] MEDS: potassium Cl 20 mEq SR tablet PO SCH ×2 (07:51→20:33)
[2020-06-22] MEDS: aripiprazole 5mg tablet PO SCH (07:52)
[2020-06-22] MEDS: sennosides/docusate sodium tablet PO SCH ×2 (08:00→20:33)
--- NOTE | 2020-06-22 08:00 | NUR ---
SLOW-MAG THIS AM, PENDING CURRENTLY MAGNESIUM LEVEL
[2020-06-22 08:08] LABS: MAGNESIUM 2.2 MG/DL (1.5-2.4)
[2020-06-22] MEDS: DEXMETHYLPHENIDATE 5 MG PO SCH (09:57)
--- NOTE | 2020-06-22 09:57 | NUR ---
MED PASS COMPLETED WITH CLAUDIA ORTIZ DIE DESIGNER APPRENTICE.
[2020-06-22 11:00] VITALS: BP 116/75
--- NOTE | 2020-06-22 13:46 | NUR ---
Initial: Pt admit with CAD POD# 3 s/p CABG x 1. Attempted visit with pt at bedside however pt out of room. Written post cardiac surgery diet education and heart healthy education handouts with RD contact information left at patient's bedside. RD later returned once pt was available for f/u verbal education. Pt reports reading the materials provided and denies questions at this time. Pt on a no concentrated sweets diet documented with mostly 100% PO intake. Pt endorses a good appetite and reports being full from meals. Pt declines additional protein at this time. Pt denies food allergies or difficulty chewing/swallowing. Pt reports diarrhea 2/5 following MoM admin however states more solid BM today. Will continue to follow and monitor need for nutrition intervention. Recommendations: 1) Continue no concentrated sweets diet 2) Monitor need for additional protein 3) Routine bowel care 4) Scaled weights per rx Addendum: 06/22/20 at [address] Amended: Links added.
[2020-06-22] MEDS: magnesium Cl slow-release 64mg tablet PO SCH ×2 (15:40→20:33)
--- NOTE | 2020-06-22 15:41 | NUR ---
MED PASS COMPLETED WITH CLAUDIA ORTIZ TRAFFIC PERSONNEL SUPERVISOR.
[2020-06-22 18:00] VITALS: BP 147/77
--- NOTE | 2020-06-22 18:10 | NUR ---
Problems reprioritized. Patient report given, questions answered & plan of care reviewed with TRICIA ÁLVAREZ.
--- NOTE | 2020-06-22 18:15 | NUR ---
Patient in room MED 311. I have received report from Aileen-TRICIA, and had the opportunity to ask questions and assume patient care.
[2020-06-22] MEDS: lamoTRIgine 25mg tablet PO SCH (20:33)
[2020-06-22] MEDS: atorvastatin 10mg tablet PO SCH (20:33)
[2020-06-23] MEDS: gabapentin 300mg capsule PO SCH ×2 (01:11→08:00)
--- NOTE | 2020-06-23 06:26 | NUR ---
Problems reprioritized. Patient report given, questions answered & plan of care reviewed with Nathalie CLARKE (traveler).
[2020-06-23 06:50] LABS: ALBUMIN 3.3 G/DL (3.4-5.0); ANION GAP 8 (8-16); BLOOD UREA NITROGEN 14 MG/DL (7-18); BUN/CREATININE RATIO 15.7 (5.4-32.0); CALCIUM 8.7 MG/DL (8.5-10.1); CHLORIDE 106 MMOL/L (99-107); CREATININE 0.89 MG/DL (0.60-1.10); GLUCOSE 98 MG/DL (70-104); POTASSIUM 4.4 MMOL/L (3.5-5.1); SODIUM 142 MMOL/L (135-145); TOTAL CARBON DIOXIDE 27.7 MMOL/L (24-32); eGFR 88 ML/MIN
[2020-06-23 06:58] LABS: BASOPHILS % (AUTO) 0.2 % (0-1); EOSINOPHILS # (AUTO) 0.5 X10'3 (0-0.9); EOSINOPHILS % (AUTO) 5.1 % (0-6); HEMOGLOBIN 13.7 g/dl (14.0-17.9); LYMPHOCYTES # (AUTO) 1.2 X10'3 (1.1-4.8); LYMPHOCYTES % (AUTO) 13.3 % (21-51); MEAN CORPUSCULAR HEMOGLOBIN 30.6 PG (27.0-31.0); MEAN CORPUSCULAR HGB CONC 35.2 g/dL (33.0-36.5); MEAN PLATELET VOLUME 8.4 FL (7.4-10.4); MONOCYTES # (AUTO) 0.9 X10'3 (0-0.9); MONOCYTES % (AUTO) 10.6 % (2-12); NEUTROPHILS # (AUTO) 6.3 X10'3 (1.8-7.7); NEUTROPHILS % (AUTO) 70.8 % (42-75); PLATELET COUNT 183 X10'3 (140-440); RED BLOOD COUNT 4.48 X10'6 (4.70-6.10); RED CELL DISTRIBUTION WIDTH 14.2 % (11.5-14.5); WHITE BLOOD COUNT 8.8 X10'3 (4.5-11.0)
[2020-06-23] MEDS: pantoprazole 40mg Tablet.DR PO SCH (07:30)
[2020-06-23] MEDS: potassium Cl 20 mEq SR tablet PO SCH (08:00)
[2020-06-23] MEDS: metoprolol tartrate 25mg tablet PO SCH (08:00)
[2020-06-23] MEDS: sennosides/docusate sodium tablet PO SCH (08:00)
[2020-06-23] MEDS: aripiprazole 5mg tablet PO SCH (08:00)
[2020-06-23] MEDS: PARoxetine 20mg tablet PO SCH (08:00)
[2020-06-23] MEDS: naltrexone 50mg tablet PO SCH (08:00)
[2020-06-23] MEDS: aspirin 325mg tablet, delayed-release (Ecotrin) PO SCH (08:00)
[2020-06-23] MEDS ORDERED: ATOR10TA PO (09:43)
[2020-06-23] MEDS ORDERED: HYDR-3972 PO (09:43)
[2020-06-23] MEDS ORDERED: metoprolol tartrate tablet PO (09:54)
[2020-06-23] MEDS ORDERED: METO25TA6 PO (09:54)
[2020-06-23] MEDS: DEXMETHYLPHENIDATE 5 MG PO SCH (10:16)
[2020-06-23 11:00] VITALS: BP 118/72
== END 2020-06-23 12:56 | disposition home or self-care (01) | DRG 234 ==
LOC: SSTAY O 09:19 → UNDOADMIN 13:43 → MED 3N 13:43 → ICU 2S 06-19 08:57 → MED 3N 06-21 09:37
PROVIDERS: ADMIT Thoracic Surgery (Cardiothoracic Vascular Surgery); ATTEND Thoracic Surgery (Cardiothoracic Vascular Surgery)
PROC: 4A023N7 Measurement of Cardiac Sampling and Pressure, Left Heart, Percutaneous Approach (ICD-10-PCS; principal; 2020-06-17)
PROC: 02JA3ZZ Inspection of Heart, Percutaneous Approach (ICD-10-PCS; 2020-06-17)
PROC: B2111ZZ Fluoroscopy of Multiple Coronary Arteries using Low Osmolar Contrast (ICD-10-PCS; 2020-06-17)
PROC: 02100Z9 Bypass Coronary Artery, One Artery from Left Internal Mammary, Open Approach (ICD-10-PCS; 2020-06-19)
PROC: B24BZZ4 Ultrasonography of Heart with Aorta, Transesophageal (ICD-10-PCS; 2020-06-19)
PROC: 5A1221Z Performance of Cardiac Output, Continuous (ICD-10-PCS; 2020-06-19)
DX: I25.110 Atherosclerotic heart disease of native coronary artery with unstable angina pectoris (principal); F41.9 Anxiety disorder, unspecified; G47.30 Sleep apnea, unspecified; R00.0 Tachycardia, unspecified; F42.9 Obsessive-compulsive disorder, unspecified; F43.10 Post-traumatic stress disorder, unspecified; Z81.8 Family history of other mental and behavioral disorders; Z82.49 Family history of ischemic heart disease and other diseases of the circulatory system
CPT/HCPCS: 0232T; 93306; 93312; 93325; 93458; C9600; Z7506; Z7508; 36415; 36600; 71045; 71046; 80048; 80053; 82330; 82435; 82803; 82947; 82948; 83036; 83735; 84100; 84132; 84295; 85018; 85025; 85347; 85384; 85610; 85730; 86885; 86900; 86901; 86920; 87081; 93005; 93880; 93970; 94002; 94010; 94640; 94668; 94760; 97110; 97116; 97161; 97164; 97530; 99152; 99153; A4618; A4620; A6258; A6402; A6449; A7000; A7048; C1713; C1725; C1751; C1760; C1769; C9113; C9607; G0378; J0690; J1644; J1815; J2001; J2060; J2150; J2250; J2270; J2370; J2440; J2704; J2720; J2930; J3010; J3370; J3475; J3480; J3490; J7030; J7040; J7050; J7120; P9045; P9047; Q0163; Q9967

== ENCOUNTER 2022-12-08 17:51 | Emergency (ER) | payer OTHER ==
[~2022-12-08] VITALS: Ht 182.9 cm; Wt 113.6 kg
[~2022-12-08 17:51] MED LIST changes: +ARIP5TAB14 PO; +ASPI-1265 PO; +ATOR10TA PO; +DEXM5CPM PO; +GABA300C PO; +HYDR-3972 PO; +LAMO25TA94 PO; +LOP25T PO; +NALT50TA PO; +PARO-154 PO; +ZOLP5TAB2 PO; +metoprolol tartrate tablet PO; -papaverine 30 mg/ml 2ml inj. ONE
[2022-12-08 18:04] LABS: BASOPHILS % (AUTO) 0.3 % (0-1); EOSINOPHILS # (AUTO) 0.1 X10'3 (0-0.9); HEMATOCRIT 45.7 % (42.0-52.0); HEMOGLOBIN 15.8 g/dl (14.0-17.9); LYMPHOCYTES # (AUTO) 1.5 X10'3 (1.1-4.8); MEAN CORPUSCULAR HEMOGLOBIN 30.5 PG (27.0-31.0); MEAN CORPUSCULAR HGB CONC 34.6 g/dL (33.0-36.5); MEAN CORPUSCULAR VOLUME 88.1 FL (78-98); MEAN PLATELET VOLUME 7.5 FL (7.4-10.4); MONOCYTES # (AUTO) 0.4 X10'3 (0-0.9); NEUTROPHILS # (AUTO) 4.6 X10'3 (1.8-7.7); NEUTROPHILS % (AUTO) 68.7 % (42-75); PLATELET COUNT 193 X10'3 (140-440); RED BLOOD COUNT 5.19 X10'6 (4.70-6.10); RED CELL DISTRIBUTION WIDTH 14.5 % (11.5-14.5); WHITE BLOOD COUNT 6.7 X10'3 (4.5-11.0)
[2022-12-08 18:24] LABS: ALANINE AMINOTRANSFERASE 28 U/L (12-78); ALBUMIN/GLOBULIN RATIO 1.3 (1.1-1.5); ALKALINE PHOSPHATASE 64 IU/L (46-116); ANION GAP 8 (8-16); ASPARTATE AMINO TRANSFERASE 17 U/L (10-37); BILIRUBIN,TOTAL 0.7 MG/DL (0.1-1.0); BLOOD UREA NITROGEN 11 MG/DL (7-18); BUN/CREATININE RATIO 11.3 (10.0-20.0); CALCIUM 9.1 MG/DL (8.5-10.1); CHLORIDE 102 MMOL/L (99-107); CREATININE 0.97 MG/DL (0.60-1.10); GLUCOSE 150 MG/DL (70-104); POTASSIUM 3.9 MMOL/L (3.5-5.1); SODIUM 139 MMOL/L (135-145); TOTAL CARBON DIOXIDE 28.8 MMOL/L (24-32); TOTAL PROTEIN 7.1 G/DL (6.4-8.2); eGFR 79 ML/MIN
[2022-12-08 19:05] VITALS: TEMP 97.8
--- NOTE | 2022-12-08 19:06 | NUR ---
PT DENIEAS ANY CHEST PAIN AT THIS TIME BUT IS STILL FEELING SLIGHTLY DIZZY AND LIGHTHEADED.
[2022-12-08 22:43] VITALS: BP 109/76; PULSE 50; RESP 18; O2SAT 97
== END 2022-12-08 22:45 | disposition home or self-care (01) ==
LOC: ER 17:52
DX: R55 Syncope and collapse (principal); Z79.82 Long term (current) use of aspirin; Z79.899 Other long term (current) drug therapy
CPT/HCPCS: 36415; 71045; 80053; 83880; 84484; 85025; 93005; 99285

== ENCOUNTER 2023-03-03 15:43 | Emergency (ER) | payer OTHER ==
[~2023-03-03] VITALS: Ht 185.4 cm; Wt 130.0 kg
[2023-03-03 15:52] VITALS: RESP 18
[2023-03-03 17:27] VITALS: BP 129/79; PULSE 61; TEMP 97.9; O2SAT 95
[2023-03-03 18:33] LABS: BASOPHILS % (AUTO) 0.3 % (0-1); EOSINOPHILS # (AUTO) 0.1 X10'3 (0-0.9); EOSINOPHILS % (AUTO) 1.2 % (0-6); HEMOGLOBIN 15.7 g/dl (14.0-17.9); LYMPHOCYTES # (AUTO) 0.9 X10'3 (1.1-4.8); LYMPHOCYTES % (AUTO) 14.1 % (21-51); MEAN CORPUSCULAR HEMOGLOBIN 30.2 PG (27.0-31.0); MEAN CORPUSCULAR HGB CONC 34.1 g/dL (33.0-36.5); MEAN CORPUSCULAR VOLUME 88.6 FL (78-98); MEAN PLATELET VOLUME 7.5 FL (7.4-10.4); MONOCYTES # (AUTO) 0.8 X10'3 (0-0.9); NEUTROPHILS # (AUTO) 4.8 X10'3 (1.8-7.7); NEUTROPHILS % (AUTO) 72.4 % (42-75); PLATELET COUNT 183 X10'3 (140-440); RED BLOOD COUNT 5.19 X10'6 (4.70-6.10); RED CELL DISTRIBUTION WIDTH 14.4 % (11.5-14.5); WHITE BLOOD COUNT 6.7 X10'3 (4.5-11.0)
[2023-03-03 18:51] LABS: ALANINE AMINOTRANSFERASE 32 U/L (12-78); ALBUMIN/GLOBULIN RATIO 1.2 (1.1-1.5); ALKALINE PHOSPHATASE 68 IU/L (46-116); ANION GAP 2 (8-16); ASPARTATE AMINO TRANSFERASE 15 U/L (10-37); BILIRUBIN,TOTAL 0.6 MG/DL (0.1-1.0); BLOOD UREA NITROGEN 12 MG/DL (7-18); BUN/CREATININE RATIO 12.5 (10.0-20.0); CHLORIDE 101 MMOL/L (99-107); CREATININE 0.96 MG/DL (0.60-1.10); GLUCOSE 80 MG/DL (70-104); POTASSIUM 3.9 MMOL/L (3.5-5.1); SODIUM 137 MMOL/L (135-145); TOTAL CARBON DIOXIDE 33.7 MMOL/L (24-32); TOTAL PROTEIN 7.3 G/DL (6.4-8.2); eCRCL 94 ML/MIN; eGFR 80 ML/MIN
[2023-03-03 18:57] LABS: PRO BRAIN NATRIURETIC PEPTIDE 193 PG/ML (0-125)
== END 2023-03-03 22:15 | disposition left against medical advice (07) ==
LOC: ER 15:45
DX: R00.2 Palpitations (principal); Z53.21 Procedure and treatment not carried out due to patient leaving prior to being seen by health care provider
CPT/HCPCS: 36415; 80053; 83880; 84484; 85025; 93005; 99281